=== PATIENT | female | born 1950 | race Caucasian/White ===

== ENCOUNTER 2018-07-10 15:17 | Inpatient (IN) | payer MEDICARE ==
[~2018-07-10] VITALS: Ht 149.9 cm; Wt 88.5 kg
[2018-07-10] MEDS ORDERED: METHYLPREDNISOLONE SOD SUCC 125 MG/2ML VIAL IV ONE (15:45)
[2018-07-10] MEDS ORDERED: MAGNESIUM SULFATE 2GM/50ML 50 ML IV ONE (15:45)
[2018-07-10] MEDS ORDERED: ALBUTEROL/IPRATROPIUM 3 ML NEB NEB ONE ×2 (16:00→18:45)
[2018-07-10 16:15] LABS: BASOPHILS # (AUTO) 0.1 (0.0-0.1); BASOPHILS % 0.6 % (0.0-1.0); EOSINOPHILS # (AUTO) 0.5 (0.0-0.4); EOSINOPHILS % 5.3 % (0.0-6.0); HEMATOCRIT 37.4 % (34.2-44.1); LYMPHOCYTES # (AUTO) 2.3 (1.0-3.2); LYMPHOCYTES % 24.1 % (18.0-39.1); MEAN CORPUSCULAR HEMOGLOBIN 32.8 pg (28-32); MEAN CORPUSCULAR HGB CONC 32.1 g/dL (31-35); MEAN CORPUSCULAR VOLUME 102.2 fL (81-99); MONOCYTES # (AUTO) 0.6 (0.2-0.8); MONOCYTES % 5.9 % (4.4-11.3); NEUTROPHILS # (AUTO) 6.1 (2.1-6.9); NEUTROPHILS % 63.8 % (38.7-80.0); PLATELET COUNT 292 x10e3/uL (140-360); RED BLOOD COUNT 3.66 x10e6/uL (3.6-5.1); RED CELL DISTRIBUTION WIDTH 12.2 % (11.7-14.4)
[2018-07-10 16:34] LABS: ALBUMIN 3.5 g/dL (3.5-5.0); ANION GAP 13.7 mmol/L (8-16); CREATININE, SERUM 1.23 mg/dL (0.57-1.11); POTASSIUM 3.7 mmol/L (3.5-5.1)
[2018-07-10 17:21] LABS: CLARITY,URINE HAZY (CLEAR); COLOR,URINE YELLOW (YELLOW); LEUKOCYTE ESTERASE ,URINE 2+ (NEGATIVE); NITRITE,URINE NEGATIVE (NEGATIVE); PROTEIN,URINE DIPSTICK NEGATIVE (NEGATIVE)
[2018-07-10 17:22] LABS: BILIRUBIN,URINE NEGATIVE (NEGATIVE); KETONES,URINE NEGATIVE (NEGATIVE); URINE UROBILINOGEN 0.2 mg/dL (0.2 - 1)
[2018-07-10 17:42] LABS: BACTERIA,URINE MANY /HPF; WBC,URINE (MAN) >50 /HPF (0-5)
--- NOTE | 2018-07-10 17:46 | Diagnostic Imaging Report ---
EXAMINATION: CHEST SINGLE (NOT PORTABLE) INDICATION: \S\COUGH \S\[id number] \S\[id number] COMPARISON: None FINDINGS: AP view TUBES and LINES: None. LUNGS: Low lung volumes. Bibasilar atelectasis. Increased interstitial lung markings likely due to low lung volumes. PLEURA: No pleural effusion or pneumothorax. HEART AND MEDIASTINUM: The cardiomediastinal silhouette is unremarkable.. BONES AND SOFT TISSUES: No acute osseous lesion. Soft tissues are unremarkable. UPPER ABDOMEN: No free air under the diaphragm. IMPRESSION: Low lung volumes with associated bibasilar atelectasis. Interstitial lung markings likely related to low lung volumes. Consider repeat good inspiratory chest x-ray to exclude interstitial edema. Signed by: Dr. Aylin Arias M.D. on 07/10/2018 5:43 PM
[2018-07-10] MEDS ORDERED: MORPHINE SULFATE 2 MG/ML SYR IV STA (18:35)
[2018-07-10] MEDS ORDERED: ONDANSETRON HCL INJ 2 MG/ML VIAL IV ONE (18:35)
[2018-07-10 18:39] LABS: CREATINE KINASE MB 2.1 ng/mL (0-5.0)
[2018-07-10] MEDS ORDERED: SODIUM CHLORIDE 0.9% 1000ML 1,000 ML ONE (19:20)
[2018-07-10] MEDS: AZITHROMYCIN 500MG/NS 250 ML 250 ML IV SCH (19:36)
[2018-07-10 21:00] VITALS: BP 114/79
[2018-07-10] MEDS ORDERED: METOPROLOL TART50 MG PO (21:08)
[2018-07-10] MEDS ORDERED: LEVOCETIRIZINE D5 MG (21:08)
[2018-07-10] MEDS ORDERED: NORVASC5 MG PO (21:08)
[2018-07-10] MEDS ORDERED: LIPITOR20 MG (21:08)
[2018-07-10] MEDS ORDERED: PHENYTOIN100 MG/4 M (21:08)
[2018-07-10] MEDS ORDERED: NABUMETONE500 MG (21:08)
[2018-07-10] MEDS ORDERED: ALPRAZOLAM2 MG (21:08)
[2018-07-10] MEDS ORDERED: ALENDRONATE SOD70 MG (21:08)
[2018-07-10 22:00] VITALS: BP 114/79
--- NOTE | 2018-07-10 23:54 | Diagnostic Imaging Report ---
EXAM: CT Abdomen and Pelvis WITH contrast INDICATION: Abdominal pain COMPARISON: None. TECHNIQUE: Abdomen and pelvis were scanned utilizing a multidetector helical scanner from the lung base to the pubic symphysis after administration of IV contrast. Coronal and sagittal reformations were obtained. Routine protocol was performed. Scan was performed when during portal venous phase. IV CONTRAST: 100 mL of Isovue-370 ORAL CONTRAST: Water RADIATION DOSE: Total DLP: 537.84 mGy*cm Estimated effective dose: (DLP x 0.015 x size factor) mSv COMPLICATIONS: None FINDINGS: LINES and TUBES: None. LOWER THORAX: There is bibasilar atelectasis. HEPATOBILIARY: No focal hepatic lesions. No biliary ductal dilation. GALLBLADDER: No radio-opaque stones or sludge. No wall thickening. SPLEEN: No splenomegaly. PANCREAS: No focal masses or ductal dilatation. 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 Kidneys enhance symmetrically. No hydronephrosis. No cystic or solid mass lesions. No stones. GI TRACT: No abnormal distention, wall thickening, or evidence of bowel obstruction. There are diverticula within the colon without evidence of diverticulitis. Appendix is not clearly identified. There is however no fat stranding or adenopathy in the right lower quadrant to suggest appendicitis. PELVIC ORGANS/BLADDER: Circumferential thickening of the urinary bladder with evidence of mucosal enhancement suggests chronic cystitis LYMPH NODES: No lymphadenopathy. VESSELS: There is moderate atherosclerotic disease in the aorta and major arterial branches. PERITONEUM / RETROPERITONEUM: No free air or fluid. BONES: Multiple right-sided rib fractures. Total left hip arthroplasty. Moderate degenerative changes of the thoracolumbar spine with evidence of severe chronic compression deformity of T11, T7 and into a lesser extent T10 SOFT TISSUES: Unremarkable. IMPRESSION: 1. Findings in the pelvis are compatible with ascites in the appropriate clinical setting. Correlation with UA is recommended. 2. Diverticulosis of the sigmoid colon without evidence of diverticulitis. Signed by: Dr. Abdiaziz Miller M.D. on 07/10/2018 11:50 PM
[2018-07-11] VITALS (8 sets, daily range): BP systolic 106–125; BP diastolic 56–69
[2018-07-11 05:54] LABS: BASOPHILS % 0.1 % (0.0-1.0); HEMATOCRIT 35.2 % (34.2-44.1); LYMPHOCYTES % 13.4 % (18.0-39.1); MEAN CORPUSCULAR HEMOGLOBIN 32.1 pg (28-32); MEAN CORPUSCULAR HGB CONC 31.3 g/dL (31-35); MEAN CORPUSCULAR VOLUME 102.6 fL (81-99); MONOCYTES # (AUTO) 0.1 (0.2-0.8); MONOCYTES % 0.8 % (4.4-11.3); NEUTROPHILS # (AUTO) 6.5 (2.1-6.9); NEUTROPHILS % 84.9 % (38.7-80.0); PLATELET COUNT 284 x10e3/uL (140-360); RED BLOOD COUNT 3.43 x10e6/uL (3.6-5.1)
[2018-07-11 06:29] LABS: ANION GAP 13.4 mmol/L (8-16); CALCIUM 8.6 mg/dL (8.4-10.2); CREATININE, SERUM 1.09 mg/dL (0.57-1.11); POTASSIUM 4.4 mmol/L (3.5-5.1)
[2018-07-11 06:36] LABS: CREATINE KINASE MB 3.5 ng/mL (0-5.0)
[2018-07-11] MEDS: CEFTRIAXONE SOD 1 GM VIAL IV SCH (13:25)
[2018-07-11] MEDS: GUAIFENESIN 600MG/DEXTROMETHORPHAN 30MG TABSR PO SCH ×2 (13:25→20:16)
[2018-07-11] MEDS: METHYLPREDNISOLONE SOD SUCC 40 MG/ML VIAL IV SCH ×2 (13:25→20:16)
[2018-07-11] MEDS: HEPARIN SOD (PORCINE) 5,000 UNIT/ML VIAL SC SCH ×2 (13:25→20:18)
[2018-07-11] MEDS: LORATADINE 10 MG TAB PO SCH (13:35)
[2018-07-11 15:01] LABS: CREATINE KINASE 138 IU/L (29-168)
[2018-07-11] MEDS: TRAMADOL HCL 50 MG TAB PO PRN (15:31)
[2018-07-11] MEDS: BENZONATATE 100 MG CAP PO SCH ×2 (15:31→20:17)
[2018-07-11] MEDS: FAMOTIDINE 20 MG TAB PO SCH (17:15)
[2018-07-11] MEDS: METOPROLOL TARTRATE 50 MG TAB PO SCH (17:15)
--- NOTE | 2018-07-11 17:17 | History and Physical ---
PRIMARY CARE PHYSICIAN: Dr. Vasquez. CHIEF COMPLAINT: Shortness of breath and cough. HISTORY OF PRESENT ILLNESS: This is a 68-year-old woman with a history of stroke and COPD, who has continued to smoke 1 pack of cigarettes per day, now complaining of shortness of breath and cough prompting a visit to the hospital. She is admitted for further evaluation and management. Denies any chest pain. PAST MEDICAL HISTORY: COPD, stroke, anxiety disorder, osteoporosis, hypertension, hyperlipidemia, obesity. PAST SURGICAL HISTORY: Unknown. ALLERGIES: PER THE ELECTRONIC MEDICAL RECORDS. FAMILY HISTORY/SOCIAL HISTORY: Patient lives with her daughter and her 6 grandchildren. Patient is . Continues to smoke 1 pack of cigarettes per day. MEDICATIONS: Per the electronic medical records. Medications reviewed. REVIEW OF SYSTEMS: Denies any dizziness, chest pain. Denies any fever, chills, sweats, nausea, vomiting, diarrhea, headache. VITAL SIGNS: Have been reviewed. PHYSICAL EXAMINATION GENERAL APPEARANCE: A tired-appearing woman resting in bed. HEENT: Anicteric. CARDIOVASCULAR: Normal S1/S2. LUNGS: She has reduced breath sounds throughout. ABDOMEN: Soft, nontender. Does appear to have some edema in the abdominal wall. EXTREMITIES: She has no edema. NEUROLOGICALLY: Awake, alert, appropriate. She does whisper due to a stroke, has difficulty with speech. PSYCHIATRIC: Flat affect. LABS: Reviewed. ASSESSMENT: This is a 68-year-old woman. 1. Acute exacerbation of chronic obstructive pulmonary disease. 1. Acute kidney injury. 2. Cigarette abuse. 3. Obesity. 4. Urinary tract infection. 5. Ascites. 6. Diverticulosis. 7. Hypertension. 8. Hyperlipidemia. 9. History of stroke. 10. Gait disturbance. PLAN 1. Will use nebs, steroids, antibiotics, antihistamine, antitussive medication. 2. Will treat the urinary tract infection with ceftriaxone and obtain cultures. 3. Will monitor renal function. 4. Will obtain hemoglobin A1c and lipid panel. 5. Will start nicotine patch and international student counselor on cigarette cessation. 6. Physical therapy consultation. 7. Will use heparin and Pepcid for the prophylaxis. 8. Disposition. Monitor closely and follow up labs in the morning. Job#: [id number] EV
[2018-07-11] MEDS: AZITHROMYCIN 500MG/NS 250 ML 250 ML IV SCH (17:40)
[2018-07-11] MEDS: ATORVASTATIN 40 MG TAB PO SCH (20:16)
[2018-07-11] MEDS: MONTELUKAST SODIUM 10 MG TAB PO SCH (20:17)
[2018-07-11] MEDS: ACETAMINOPHEN 325 MG TAB PO PRN (23:50)
[2018-07-12] VITALS (7 sets, daily range): BP systolic 96–121; BP diastolic 52–63
[2018-07-12 05:15] LABS: BASOPHILS % 0.1 % (0.0-1.0); HEMATOCRIT 31.4 % (34.2-44.1); LYMPHOCYTES # (AUTO) 1.1 (1.0-3.2); LYMPHOCYTES % 11.1 % (18.0-39.1); MEAN CORPUSCULAR HEMOGLOBIN 32.9 pg (28-32); MEAN CORPUSCULAR HGB CONC 31.8 g/dL (31-35); MEAN CORPUSCULAR VOLUME 103.3 fL (81-99); MONOCYTES # (AUTO) 0.4 (0.2-0.8); MONOCYTES % 3.4 % (4.4-11.3); NEUTROPHILS # (AUTO) 8.7 (2.1-6.9); NEUTROPHILS % 84.8 % (38.7-80.0); PLATELET COUNT 268 x10e3/uL (140-360); RED BLOOD COUNT 3.04 x10e6/uL (3.6-5.1); RED CELL DISTRIBUTION WIDTH 12.2 % (11.7-14.4)
[2018-07-12 05:36] LABS: ANION GAP 13.6 mmol/L (8-16); CALCIUM 8.3 mg/dL (8.4-10.2); CREATININE, SERUM 1.06 mg/dL (0.57-1.11); POTASSIUM 4.6 mmol/L (3.5-5.1)
[2018-07-12] MEDS: FAMOTIDINE 20 MG TAB PO SCH ×2 (08:05→16:49)
[2018-07-12] MEDS: TRAMADOL HCL 50 MG TAB PO PRN ×2 (08:32→16:40)
[2018-07-12] MEDS: LORATADINE 10 MG TAB PO SCH (08:55)
[2018-07-12] MEDS: METHYLPREDNISOLONE SOD SUCC 40 MG/ML VIAL IV SCH ×2 (08:55→20:31)
[2018-07-12] MEDS: BENZONATATE 100 MG CAP PO SCH ×3 (08:55→20:31)
[2018-07-12] MEDS: GUAIFENESIN 600MG/DEXTROMETHORPHAN 30MG TABSR PO SCH ×2 (08:55→20:31)
[2018-07-12] MEDS: NICOTINE 21 MG/EA PATCH TOP SCH (08:56)
[2018-07-12] MEDS: AMLODIPINE BESYLATE 10 MG TAB PO SCH (08:56)
[2018-07-12] MEDS: HEPARIN SOD (PORCINE) 5,000 UNIT/ML VIAL SC SCH ×2 (08:56→20:32)
[2018-07-12] MEDS: METOPROLOL TARTRATE 50 MG TAB PO SCH (08:58)
[2018-07-12] MEDS ORDERED: ATORVASTATIN 20 MG TAB PO SCH (09:00)
[2018-07-12] MEDS ORDERED: AMLODIPINE BESYLATE 5 MG TAB PO SCH (09:00)
[2018-07-12] MEDS: CEFTRIAXONE SOD 1 GM VIAL IV SCH (13:02)
[2018-07-12] MEDS: HYDRALAZINE HCL 25 MG TAB PO SCH ×2 (14:00→20:31)
[2018-07-12] MEDS ORDERED: SODIUM CHLORIDE 0.9% 250ML 250 ML ONE (16:57)
[2018-07-12] MEDS: AZITHROMYCIN 500MG/NS 250 ML 250 ML IV SCH (17:09)
[2018-07-12] MEDS: ATORVASTATIN 40 MG TAB PO SCH (20:31)
[2018-07-12] MEDS: MONTELUKAST SODIUM 10 MG TAB PO SCH (20:31)
[2018-07-12] MEDS: ACETAMINOPHEN 325 MG TAB PO PRN (20:38)
[2018-07-13] VITALS (8 sets, daily range): BP systolic 96–138; BP diastolic 50–67
[2018-07-13] MEDS: TRAMADOL HCL 50 MG TAB PO PRN ×4 (01:16→21:10)
[2018-07-13 05:13] LABS: HEMATOCRIT 32.2 % (34.2-44.1); HEMOGLOBIN 9.9 g/dL (12.0-16.0); LYMPHOCYTES # (AUTO) 1.2 (1.0-3.2); LYMPHOCYTES % 11.3 % (18.0-39.1); MEAN CORPUSCULAR HEMOGLOBIN 32.9 pg (28-32); MEAN CORPUSCULAR HGB CONC 30.7 g/dL (31-35); MONOCYTES # (AUTO) 0.4 (0.2-0.8); MONOCYTES % 3.7 % (4.4-11.3); NEUTROPHILS % 84.3 % (38.7-80.0); PLATELET COUNT 267 x10e3/uL (140-360); RED BLOOD COUNT 3.01 x10e6/uL (3.6-5.1); RED CELL DISTRIBUTION WIDTH 12.2 % (11.7-14.4)
[2018-07-13 05:24] LABS: ANION GAP 14.7 mmol/L (8-16); CALCIUM 8.3 mg/dL (8.4-10.2); POTASSIUM 4.7 mmol/L (3.5-5.1)
[2018-07-13 05:43] LABS: CREATININE, SERUM 1.1 mg/dL (0.57-1.11)
[2018-07-13] MEDS: HYDRALAZINE HCL 25 MG TAB PO SCH ×3 (06:18→22:18)
[2018-07-13] MEDS: ACETAMINOPHEN 325 MG TAB PO PRN ×2 (06:18→16:57)
[2018-07-13] MEDS: FAMOTIDINE 20 MG TAB PO SCH ×2 (09:59→16:55)
[2018-07-13] MEDS: NICOTINE 21 MG/EA PATCH TOP SCH (10:00)
[2018-07-13] MEDS: HEPARIN SOD (PORCINE) 5,000 UNIT/ML VIAL SC SCH ×2 (10:00→20:55)
[2018-07-13] MEDS: GUAIFENESIN 600MG/DEXTROMETHORPHAN 30MG TABSR PO SCH ×2 (10:00→20:55)
[2018-07-13] MEDS: BENZONATATE 100 MG CAP PO SCH ×3 (10:00→20:55)
[2018-07-13] MEDS: LORATADINE 10 MG TAB PO SCH (10:00)
[2018-07-13] MEDS: METHYLPREDNISOLONE SOD SUCC 40 MG/ML VIAL IV SCH ×2 (10:00→20:55)
[2018-07-13] MEDS: AMLODIPINE BESYLATE 10 MG TAB PO SCH (10:07)
[2018-07-13] MEDS ORDERED: SODIUM CHLORIDE 0.9% 250ML 250 ML IV ONE (12:30)
--- NOTE | 2018-07-13 13:32 | Progress Note ---
DATE: July 13, 2018 TIME OF SERVICE: 11:30 a.m. OVERNIGHT: No acute events. REVIEW OF SYSTEMS: Patient denies chest pain or shortness of breath at rest. Denies any fever, chills, sweats, nausea, vomiting, or diarrhea. Complains of headache and some abdominal tenderness. PHYSICAL EXAMINATION VITAL SIGNS: Temperature 97.1, pulse 50, respiratory rate 16, BP 109/59, and SpO2 100% with nasal cannula at 3 L/minute. GENERAL APPEARANCE: This is a tired-appearing woman, resting in bed. HEENT: Normocephalic. No sinus tenderness. Oral mucosa moist, pale and intact. NECK: Trachea midline. CV: S1 and S2 without clicks, murmurs, or rubs appreciated. LUNGS: Bilateral breath sounds reduced in all walker without crackles or wheezes. ABDOMEN: Soft, nontender with slight edema to the abdominal wall. Slight tenderness upon deep palpation to left lower and lower upper quadrants. EXTREMITIES: No edema. NEUROLOGIC: A and O x3. Left-sided weakness compared to right. Slight facial droop noted at forehead. PSYCHIATRIC: Flat affect. LABS: Na 140, K 4.7, Cl 110, CO2 of 20, gap 14.7, BUN 28, CR 1.1, and GFR 49. WBC is 10.69, H and H 9.9 and 32.2 respectively, and platelets 267. MEDICATIONS 1. Norvasc 10 mg p.o. daily. 2. NicoDerm patch 21 mg daily. 3. Mucinex q.12 hours. 4. Tessalon t.i.d. 5. Claritin 10 mg p.o. daily. 6. Solu-Medrol 20 mg q.12 hours IV. 7. Subcu heparin 5000 units q.12. 8. Pepcid p.o. b.i.d. 9. Ultram p.r.n. 10. Hydralazine q.8 hours p.o. 11. Tylenol p.r.n. 12. Lipitor 40 mg p.o. at bedtime. 13. Singulair 10 mg p.o. at bedtime. 14. IV antibiotics include azithromycin and Rocephin, broad-spectrum coverage. ASSESSMENT AND PLAN: This is a 68-year-old woman with; 1. Acute exacerbation of chronic obstructive pulmonary disease. Continue nebs, steroids, antihistamines, and antitussive medications. 2. Acute kidney injury, resolved. Will treat with gentle fluid this day for increasing BUN. 3. Cigarette abuse. Nicotine patch. Prior cigarette cessation counseling noted per record. 4. Urinary tract infection. Two organisms noted with combined sensitivity to Zosyn. We will renally dose based on calculated creatinine clearance of 33.52. 5. Ascites. Weight gain per I and O record. Will continue daily weights and monitor fluid status. 6. Diverticulosis. Per abdominal CT, no evidence of diverticulitis. 7. Hypertension. Controlled on current regimen. Continue to monitor. 8. Hyperlipidemia. We will obtain A1c and lipid panel in the a.m. 9. History of stroke. PT eval pending. 1. Gait disturbance. 2. Prophylaxis. Pepcid and SCDs. 3. Disposition: IV ABX renal dose as above. PT eval pending. Discussed plan of care with patient, RN, and physical therapist at bedside this day. Treatment plan as above. Dictated by: Feliciano Langford NP Job#: [id number] AWA
[2018-07-13] MEDS: PIPERACILLIN/TAZO 2.25 GM 50 ML IV SCH (16:56)
[2018-07-13] MEDS: MONTELUKAST SODIUM 10 MG TAB PO SCH (20:55)
[2018-07-13] MEDS: ATORVASTATIN 40 MG TAB PO SCH (20:55)
--- NOTE | 2018-07-13 22:53 | Progress Note ---
DATE: July 12, 2018 TIME OF SERVICE: 7:15 a.m. OVERNIGHT: No events. REVIEW OF SYSTEMS: Denies any dizziness or chest pain. Denies any fever, chills, sweats, nausea, vomiting, diarrhea, or headache. PHYSICAL EXAMINATION VITAL SIGNS: Reviewed. GENERAL APPEARANCE: A tired-appearing woman, resting in bed. HEENT: Anicteric. CARDIOVASCULAR: Normal S1 and S2. LUNGS: Reduced breath sounds throughout. ABDOMEN: Soft, nontender. EXTREMITIES: No edema . SKIN: Dry. PSYCHIATRIC: Flat affect. NEUROLOGICAL: Some difficulty with . LABS: Reviewed. MEDICATIONS: Reviewed. ASSESSMENT: This is a 68-year-old woman with 1. Acute exacerbation of chronic obstructive pulmonary disease. 2. Acute kidney injury. 3. Cigarette abuse. 4. Obesity. 5. Urinary tract infection. 6. Ascites. 7. Diverticulosis. 8. Hypertension. 9. Hyperlipidemia. 10. History of stroke. 11. Gait disturbance. PLAN 1. Continue nebs, steroids, antibiotics, antihistamines, and antitussive medications. 2. Continue supportive care. 3. We will obtain hemoglobin A1c and lipid panel. 4. Continue nicotine patch. 5. Continue heparin and Pepcid prophylaxis. Job#: [id number]
[2018-07-14] VITALS (8 sets, daily range): BP systolic 100–145; BP diastolic 49–64
[2018-07-14] MEDS: PIPERACILLIN/TAZO 2.25 GM 50 ML IV SCH ×4 (00:11→17:10)
[2018-07-14] MEDS: ACETAMINOPHEN 325 MG TAB PO PRN ×2 (01:03→15:00)
[2018-07-14] MEDS: TRAMADOL HCL 50 MG TAB PO PRN ×3 (04:05→22:54)
[2018-07-14 05:30] LABS: ALBUMIN 3.4 g/dL (3.5-5.0); ALBUMIN/GLOBULIN RATIO 1.1 (0.8-2.0); ANION GAP 15.3 mmol/L (8-16); CALCIUM 8.8 mg/dL (8.4-10.2); CHOL/HDL RATIO 3.1 (3.0-3.6); CREATININE, SERUM 1.24 mg/dL (0.57-1.11); POTASSIUM 4.3 mmol/L (3.5-5.1)
[2018-07-14] MEDS: HYDRALAZINE HCL 25 MG TAB PO SCH ×3 (06:48→22:15)
[2018-07-14] MEDS: FAMOTIDINE 20 MG TAB PO SCH ×2 (07:25→17:10)
[2018-07-14] MEDS: METHYLPREDNISOLONE SOD SUCC 40 MG/ML VIAL IV SCH ×2 (08:53→22:15)
[2018-07-14] MEDS: HEPARIN SOD (PORCINE) 5,000 UNIT/ML VIAL SC SCH ×2 (08:53→22:15)
[2018-07-14] MEDS: LORATADINE 10 MG TAB PO SCH (08:53)
[2018-07-14] MEDS: AMLODIPINE BESYLATE 10 MG TAB PO SCH (08:53)
[2018-07-14] MEDS: GUAIFENESIN 600MG/DEXTROMETHORPHAN 30MG TABSR PO SCH ×2 (08:53→22:15)
[2018-07-14] MEDS: NICOTINE 21 MG/EA PATCH TOP SCH (08:53)
[2018-07-14] MEDS: BENZONATATE 100 MG CAP PO SCH ×3 (08:53→22:15)
[2018-07-14] MEDS ORDERED: ACETAMIN/BUTALBITAL/CAFFEINE TAB PO PRN (17:00)
[2018-07-14] MEDS: MONTELUKAST SODIUM 10 MG TAB PO SCH (22:15)
[2018-07-14] MEDS: ATORVASTATIN 40 MG TAB PO SCH (22:15)
--- NOTE | 2018-07-14 23:32 | Progress Note ---
DATE: July 14, 2018 TIME OF SERVICE: 1:15 p.m. OVERNIGHT: No events. REVIEW OF SYSTEMS: Denies any dizziness, chest pain, fever, chills, sweats, nausea, vomiting, or diarrhea. PHYSICAL EXAMINATION VITAL SIGNS: Reviewed. GENERAL APPEARANCE: A tired-appearing woman, resting in bed. HEENT: Anicteric with some . CARDIOVASCULAR: Normal S1 and S2. LUNGS: Reduced breath sounds throughout. ABDOMEN: Soft, nontender. EXTREMITIES: No edema . SKIN: Dry. PSYCHIATRIC: Flat affect. NEUROLOGICAL: Alert. Speech difficulty. LABS: Reviewed. MEDICATIONS: Reviewed. ASSESSMENT: This is a 68-year-old woman with 1. Acute exacerbation of chronic obstructive pulmonary disease. 2. Acute kidney injury. 3. Cigarette abuse. 4. Obesity. 5. Urinary tract infection with Klebsiella pneumoniae and Serratia fonticola, both sensitive to Zosyn. 6. Ascites. 7. Diverticulosis. 8. Hypertension. 9. Hyperlipidemia. 10. History of stroke. 11. Gait disturbance. PLAN 1. Continue nebs, steroids, antibiotics, antihistamines, and antitussive medications. 2. Continue weaning oxygen. 3. Continue nicotine patch. 4. Hemoglobin A1c 5.2, LDL 90 and triglycerides 89. 5. Discharge planning. 6. Continue Zosyn and follow up chest x-ray. Job#: [id number]
[2018-07-15] VITALS: BP 132/67
[2018-07-15] MEDS: PIPERACILLIN/TAZO 2.25 GM 50 ML IV SCH ×3 (00:43→12:30)
[2018-07-15 04:00] VITALS: BP 104/53
[2018-07-15] MEDS: HYDRALAZINE HCL 25 MG TAB PO SCH ×2 (06:00→14:46)
[2018-07-15] MEDS ORDERED: TESSALON PERLE100 MG PO (06:54)
[2018-07-15] MEDS ORDERED: SINGULAIR10 MG PO (06:54)
[2018-07-15] MEDS ORDERED: FAMOTIDINE20 MG PO (06:54)
[2018-07-15] MEDS ORDERED: HYDRALAZINE HCL25 MG PO (06:54)
[2018-07-15] MEDS ORDERED: NICODERM CQ1 EAC2 TOP (06:54)
[2018-07-15] MEDS ORDERED: LORATADINE10 MG PO (06:54)
[2018-07-15] MEDS ORDERED: MUCINEX DM ER1 EACH PO (06:54)
[2018-07-15] MEDS ORDERED: PREDNISONE20 MG PO (06:54)
[2018-07-15] MEDS ORDERED: ACETAMIN/BUTALBITAL/CAFFEINE TAB PO STA (07:34)
[2018-07-15 07:54] VITALS: BP 116/53
[2018-07-15] MEDS ORDERED: ACETAMIN/BUTALBITAL/CAFFEINE TAB PO PRN (08:00)
[2018-07-15 08:15] VITALS: BP 116/53
[2018-07-15] MEDS: LORATADINE 10 MG TAB PO SCH (08:15)
[2018-07-15] MEDS: METHYLPREDNISOLONE SOD SUCC 40 MG/ML VIAL IV SCH (08:15)
[2018-07-15] MEDS: BENZONATATE 100 MG CAP PO SCH ×2 (08:15→14:46)
[2018-07-15] MEDS: GUAIFENESIN 600MG/DEXTROMETHORPHAN 30MG TABSR PO SCH (08:15)
[2018-07-15] MEDS: AMLODIPINE BESYLATE 10 MG TAB PO SCH (08:15)
[2018-07-15] MEDS: NICOTINE 21 MG/EA PATCH TOP SCH (08:15)
[2018-07-15] MEDS: FAMOTIDINE 20 MG TAB PO SCH (08:15)
[2018-07-15] MEDS: HEPARIN SOD (PORCINE) 5,000 UNIT/ML VIAL SC SCH (08:15)
--- NOTE | 2018-07-15 11:50 | Diagnostic Imaging Report ---
EXAM: Renal Ultrasound INDICATION: ANYA versus CKD COMPARISON: CT Abdomen/Pelvis 07/10/18. TECHNIQUE: Transverse and longitudinal images of the kidneys and bladder were obtained. FINDINGS: Right Kidney: Length: Measures up to 7.6 cm. Renal cortex measures 1.1 cm. Appearance: Normal echogenicity. Collecting system: No hydronephrosis Stones: None. Cyst/Mass: None. Left Kidney: Length: Measures 10.5 cm. Renal cortex measures 1.7 cm. Appearance: Normal echogenicity. Collecting system: No hydronephrosis. Stones: None. Cyst/Mass: None. Bladder: Bladder is decompressed with the ureteral jets not visualized. IMPRESSION: No evidence of hydronephrosis or stone. Mildly atrophic right kidney. Signed by: Dr. Laura Funes MD on 07/15/2018 11:46 AM
--- NOTE | 2018-07-15 12:18 | Diagnostic Imaging Report ---
PROCEDURE: A single AP view of the chest. COMPARISON: Chest radiograph 07/10/18. INDICATIONS: SEVERE COPD WITH POSSIBLE CHF FINDINGS: Lines/tubes: None. Lungs: Low lung volumes. There are mild bilateral perihilar and interstitial opacities. Patchy bibasilar opacities, likely atelectasis. Pleura: There is no pleural effusion or pneumothorax. Heart and mediastinum: The cardiomediastinal silhouette is unchanged. Bones: No acute bony abnormality. IMPRESSION: Interval development of mild pulmonary interstitial edema. Low lung volumes with patchy bibasilar opacities, likely atelectasis. Dictated by: KSENIA KEITH M.D. on 07/14/2018 at 11:00 Electronically approved by: KSENIA KEITH M.D. on 07/14/2018 at 11:00
[2018-07-15 12:22] VITALS: BP 128/59
[2018-07-15] MEDS: TRAMADOL HCL 50 MG TAB PO PRN (12:30)
[2018-07-15] MEDS ORDERED: BUTALB-ACETAMI1 EACH PO (14:05)
[2018-07-15] MEDS ORDERED: LEVAQUIN500 MG PO (14:06)
[2018-07-15 15:43] VITALS: BP 128/66
--- NOTE | 2018-07-15 23:34 | Discharge Summary ---
PRINCIPAL DIAGNOSES 1. Acute exacerbation of chronic obstructive pulmonary disease. 2. Acute kidney injury. 3. Cigarette abuse. 4. Obesity. 5. Urinary tract infection and Klebsiella pneumoniae and Serratia fonticola. 6. Ascites. 7. Diverticulosis. 8. Hypertension. 9. Hyperlipidemia. 10. History of stroke. 11. Gait disturbance. SECONDARY DIAGNOSIS: Cigarette use. HISTORY OF PRESENT ILLNESS: A 68-year-old woman with shortness of breath. Please refer to H and P for further details. HOSPITAL COURSE: Patient found to have acute exacerbation of COPD and acute kidney injury. She likely has some degree of chronic kidney disease. Renal ultrasound shows some chronic changes. She has cigarette abuse and obesity, urinary tract infection with Klebsiella pneumoniae and Serratia fonticola, sensitive with Zosyn, which she has been receiving. Will be discharged home with Levaquin for additional day. She had ascites and diverticulosis. Gait disturbance, received physical therapy. Patient did well. Her hemoglobin A1c 5.2, LDL 9. She does not have diabetes. Currently, appropriate for discharge. DISCHARGE MEDICATION: Per electronic medical record. FOLLOWUP: Primary care doctor in 1 week. CONDITION ON DISCHARGE: Stable, improving. DISCHARGE LOCATION: Home with physical therapy. Job#: [id number] CQ
== END 2018-07-15 16:53 | disposition home or self-care (01) | DRG 191 ==
LOC: ER 15:17 → ERHOLD 18:59 → IMCU 20:42 → OBSVTOIN 07-12 18:55 → MED/SURG 07-12 21:08
PROVIDERS: ADMIT Internal Medicine; ATTEND Internal Medicine
DX: J44.1 Chronic obstructive pulmonary disease with (acute) exacerbation (principal); N17.9 Acute kidney failure, unspecified; N39.0 Urinary tract infection, site not specified; R18.8 Other ascites; F17.210 Nicotine dependence, cigarettes, uncomplicated; E66.9 Obesity, unspecified; Z68.39 Body mass index [BMI] 39.0-39.9, adult; B96.1 Klebsiella pneumoniae [K. pneumoniae] as the cause of diseases classified elsewhere; B96.89 Other specified bacterial agents as the cause of diseases classified elsewhere; K57.90 Diverticulosis of intestine, part unspecified, without perforation or abscess without bleeding; I12.9 Hypertensive chronic kidney disease with stage 1 through stage 4 chronic kidney disease, or unspecified chronic kidney disease; N18.9 Chronic kidney disease, unspecified; E78.5 Hyperlipidemia, unspecified; Z86.73 Personal history of transient ischemic attack (TIA), and cerebral infarction without residual deficits; Z74.09 Other reduced mobility; I69.320 Aphasia following cerebral infarction; I69.328 Other speech and language deficits following cerebral infarction
CPT/HCPCS: 36415; 71045; 74177; 76770; 80048; 80053; 80061; 81001; 82550; 82553; 83036; 83880; 84484; 85025; 87086; 87186; 93306; 94640; 97139; 99284; G0378; J0456; J0696; J1644; J2270; J2405; J2543; J2920; J2930; J7030; J7050

== ENCOUNTER 2021-11-12 17:00 | Inpatient (IN) | payer MEDICARE ==
[~2021-11-12] VITALS: Ht 149.9 cm; Wt 70.3 kg
[~2021-11-12 17:00] MED LIST: ALENDRONATE SOD70 MG; ALPRAZOLAM2 MG PO; BUTALB-ACETAMI1 EACH PO; FAMOTIDINE20 MG PO; HYDRALAZINE HCL25 MG PO; LEVAQUIN500 MG PO; LEVOCETIRIZINE D5 MG PO; LIPITOR20 MG; LORATADINE10 MG PO; METOPROLOL TART50 MG PO; MUCINEX DM ER1 EACH PO; NABUMETONE500 MG PO; NICODERM CQ1 EAC2 TOP; NORVASC5 MG PO; PHENYTOIN100 MG/4 M; PREDNISONE20 MG PO; SINGULAIR10 MG PO; TESSALON PERLE100 MG PO
[2021-11-12] MEDS ORDERED: LACTATED RINGER'S 1,000 ML INJ ONE (17:15)
[2021-11-12 17:24] LABS: BASOPHILS % 0.4 % (0.0-1.0); EOSINOPHILS # (AUTO) 0.1 (0.0-0.4); EOSINOPHILS % 1.3 % (0.0-6.0); HEMATOCRIT 40.3 % (34.2-44.1); LYMPHOCYTES # (AUTO) 3.4 (1.0-3.2); MEAN CORPUSCULAR HEMOGLOBIN 30.9 pg (28-32); MEAN CORPUSCULAR HGB CONC 29.8 g/dL (31-35); MEAN CORPUSCULAR VOLUME 103.9 fL (81-99); MONOCYTES # (AUTO) 0.6 (0.2-0.8); MONOCYTES % 8.5 % (4.4-11.3); NEUTROPHILS % 41.5 % (38.7-80.0); PLATELET COUNT 185 x10e3/uL (140-360); RED BLOOD COUNT 3.88 x10e6/uL (3.6-5.1); RED CELL DISTRIBUTION WIDTH 14.2 % (11.7-14.4)
[2021-11-12] MEDS ORDERED: SODIUM CHLORIDE 0.9% 1000ML 1,000 ML ONE (17:31)
[2021-11-12 17:40] LABS: INR 1.12; PROTHROMBIN TIME 15.2 seconds (11.9-14.5)
[2021-11-12 17:41] LABS: PARTIAL THROMBOPLASTIN TIME 31.5 seconds (23.8-35.5)
[2021-11-12 17:41] LABS: CLARITY,URINE HAZY (CLEAR); COLOR,URINE ORANGE (YELLOW); KETONES,URINE 1+ (NEGATIVE); LEUKOCYTE ESTERASE ,URINE LARGE (NEGATIVE); NITRITE,URINE POSITIVE (NEGATIVE); PROTEIN,URINE DIPSTICK >=300 (NEGATIVE)
[2021-11-12 17:45] LABS: BACTERIA,URINE MANY /HPF; EPITHELIAL CELLS,URINE MANY /LPF; WBC,URINE (MAN) 21-50 /HPF (0-5)
[2021-11-12] MEDS ORDERED: SODIUM CHLORIDE 0.9% 1000ML 1,000 ML IV ONE (17:45)
[2021-11-12 17:47] LABS: AMORPHOUS SEDIMENT,URINE FEW (FEW); MUCUS,URINE MANY (RARE)
[2021-11-12 17:50] LABS: ALBUMIN 3.5 g/dL (3.5-5.0); ALBUMIN/GLOBULIN RATIO 0.9 (0.8-2.0); ANION GAP 15.7 mmol/L (8-16); CALCIUM 8.5 mg/dL (8.4-10.2); CREATININE, SERUM 2.23 mg/dL (0.57-1.11); POTASSIUM 3.7 mmol/L (3.5-5.1)
[2021-11-12 17:56] LABS: CREATINE KINASE MB 8.3 ng/mL (0-5.0)
[2021-11-12] MEDS ORDERED: CEFTRIAXONE 1 GM VIAL IV ONE (18:45)
[2021-11-12] MEDS ORDERED: CEFTRIAXONE 1 GM VIAL ONE (18:51)
[2021-11-12] MEDS ORDERED: SODIUM CHLORIDE 0.9% 50ML 50 ML ONE (18:51)
[2021-11-12] MEDS ORDERED: CEFTRIAXONE 1 GM in SODIUM CHLORIDE 0.9% 50ML 50 ML IV ONE (19:15)
[2021-11-12] MEDS ORDERED: DEXAMETHASONE SOD PHOS 10 MG/1 ML VIAL IV ONE (19:15)
[2021-11-12] MEDS ORDERED: CRESTOR10 MG PO (19:34)
[2021-11-12] MEDS ORDERED: ULTRAM 50MG50 MG PO (19:34)
[2021-11-12] MEDS ORDERED: OMEPRAZOLE40 MG PO (19:34)
[2021-11-12] MEDS ORDERED: TRAMADOL/APAP PO (19:34)
[2021-11-12] MEDS ORDERED: BENICAR20 MG PO (19:34)
[2021-11-12] MEDS ORDERED: ASPIRIN81 MG PO (19:36)
[2021-11-12] MEDS ORDERED: CLOPIDOGREL75 MG PO (19:36)
[2021-11-12] MEDS ORDERED: OXYBUTYNIN CHLOR5 MG PO (19:36)
[2021-11-12] MEDS ORDERED: TYLENOL325 MG PO (19:36)
[2021-11-12] MEDS ORDERED: PYRIDIUM200 MG PO (19:36)
[2021-11-12 20:49] VITALS: BP 124/54
[2021-11-12] MEDS: NON-FORMULARY MEDICATION (Nabumetone 500 MG) PO SCH (23:15)
[2021-11-12 23:44] VITALS: BP 107/53
[2021-11-12] MEDS: ACETAMIN/BUTALBITAL/CAFFEINE TAB PO PRN (23:45)
[2021-11-13] VITALS (9 sets, daily range): BP systolic 100–114; BP diastolic 4–68
[2021-11-13] MEDS: ACETAMIN/BUTALBITAL/CAFFEINE TAB PO PRN ×2 (00:02→06:48)
[2021-11-13] MEDS: OXYBUTYNIN CHLORIDE 5 MG TAB PO SCH ×3 (00:02→16:51)
[2021-11-13] MEDS: SODIUM CHLORIDE 0.9% 1000ML 1,000 ML IV SCH ×4 (00:02→22:23)
[2021-11-13] MEDS: SIMVASTATIN 40 MG TAB PO SCH ×2 (00:02→09:06)
[2021-11-13] MEDS: AMLODIPINE BESYLATE 5 MG TAB PO SCH ×2 (00:02→09:00)
[2021-11-13] MEDS: ALPRAZOLAM 1 MG TAB PO SCH ×3 (00:02→22:24)
[2021-11-13 05:14] LABS: HEMATOCRIT 35.1 % (34.2-44.1); HEMOGLOBIN 10.1 g/dL (12.0-16.0); LYMPHOCYTES # (AUTO) 0.5 (1.0-3.2); LYMPHOCYTES % 19.8 % (18.0-39.1); MEAN CORPUSCULAR HEMOGLOBIN 30.6 pg (28-32); MEAN CORPUSCULAR HGB CONC 28.8 g/dL (31-35); MEAN CORPUSCULAR VOLUME 106.4 fL (81-99); MONOCYTES # (AUTO) 0.2 (0.2-0.8); MONOCYTES % 5.8 % (4.4-11.3); NEUTROPHILS # (AUTO) 1.9 (2.1-6.9); PLATELET COUNT 170 x10e3/uL (140-360); RED CELL DISTRIBUTION WIDTH 13.9 % (11.7-14.4)
[2021-11-13 05:38] LABS: ANION GAP 14.4 mmol/L (8-16); CALCIUM 7.5 mg/dL (8.4-10.2); CREATININE, SERUM 1.38 mg/dL (0.57-1.11); POTASSIUM 4.4 mmol/L (3.5-5.1)
[2021-11-13 08:33] LABS: BAND NEUTROPHILS % (MANUAL) 1 %; LYMPHOCYTES % (MANUAL) 17 % (19-48); MONOCYTES % (MANUAL) 4 % (3.4-9.0); NEUTROPHILS % (MANUAL) 78 % (40-74); PLATELET ESTIMATE ADEQUATE; PLATELET MORPHOLOGY COMMENT NORMAL; RBC MORPHOLOGY COMMENT NORMAL
[2021-11-13] MEDS: NON-FORMULARY MEDICATION (Nabumetone 500 MG) PO SCH ×2 (08:51→12:04)
[2021-11-13] MEDS: TRAMADOL/APAP 37.5MG-325MG TAB PO SCH ×2 (09:00→17:48)
[2021-11-13] MEDS ORDERED: TRAMADOL HCL 50 MG TAB PO SCH (09:00)
[2021-11-13] MEDS: ASCORBIC ACID 500 MG TAB PO SCH ×2 (09:06→16:51)
[2021-11-13] MEDS: CHOLECALCIFEROL 1,000 UNIT TAB PO SCH (09:06)
[2021-11-13] MEDS: PANTOPRAZOLE SOD 40 MG TABEC PO SCH (09:06)
[2021-11-13] MEDS: LORATADINE 10 MG TAB PO SCH (09:06)
[2021-11-13] MEDS: BENZONATATE 100 MG CAP PO SCH ×3 (09:06→22:23)
[2021-11-13] MEDS: ZINC SULFATE 220 MG CAP PO SCH (09:06)
[2021-11-13] MEDS: CLOPIDOGREL BISULFATE 75 MG TAB PO SCH (09:06)
[2021-11-13] MEDS: DEXAMETHASONE SOD PHOS INJ 4 MG/ML SDV IV SCH ×2 (11:53→22:23)
[2021-11-13] MEDS ORDERED: REMDESIVIR 100MG 200 MG in SODIUM CHLORIDE 0.9% 100 ML IV ONE (12:00)
[2021-11-13] MEDS: CEFTRIAXONE 1 GM in SODIUM CHLORIDE 0.9% 50ML 50 ML IV SCH (17:31)
[2021-11-13] MEDS ORDERED: Vancomycin IV 1 GM in SODIUM CHLORIDE 0.9% 250ML 250 ML IV ONE (22:00)
[2021-11-14] VITALS (8 sets, daily range): BP systolic 106–113; BP diastolic 49–70
[2021-11-14] MEDS: ACETAMIN/BUTALBITAL/CAFFEINE TAB PO PRN ×2 (00:19→20:58)
[2021-11-14 05:05] LABS: HEMATOCRIT 31.8 % (34.2-44.1); HEMOGLOBIN 9.6 g/dL (12.0-16.0); RED BLOOD COUNT 3.09 x10e6/uL (3.6-5.1)
[2021-11-14 05:06] LABS: LYMPHOCYTES # (AUTO) 0.8 (1.0-3.2); LYMPHOCYTES % 21.4 % (18.0-39.1); MEAN CORPUSCULAR HEMOGLOBIN 31.1 pg (28-32); MEAN CORPUSCULAR HGB CONC 30.2 g/dL (31-35); MEAN CORPUSCULAR VOLUME 102.9 fL (81-99); MONOCYTES # (AUTO) 0.3 (0.2-0.8); MONOCYTES % 8.2 % (4.4-11.3); NEUTROPHILS # (AUTO) 2.6 (2.1-6.9); NEUTROPHILS % 70.1 % (38.7-80.0); PLATELET COUNT 170 x10e3/uL (140-360); RED CELL DISTRIBUTION WIDTH 14.2 % (11.7-14.4)
[2021-11-14 05:53] LABS: ALBUMIN 2.8 g/dL (3.5-5.0); ANION GAP 10.5 mmol/L (8-16); CALCIUM 7.4 mg/dL (8.4-10.2); CREATININE, SERUM 0.96 mg/dL (0.57-1.11); POTASSIUM 4.5 mmol/L (3.5-5.1)
[2021-11-14] MEDS: SODIUM CHLORIDE 0.9% 1000ML 1,000 ML IV SCH ×3 (06:03→20:54)
[2021-11-14] MEDS: PANTOPRAZOLE SOD 40 MG TABEC PO SCH (07:49)
[2021-11-14] MEDS: LORATADINE 10 MG TAB PO SCH (09:38)
[2021-11-14] MEDS: ZINC SULFATE 220 MG CAP PO SCH (09:38)
[2021-11-14] MEDS: SIMVASTATIN 40 MG TAB PO SCH (09:38)
[2021-11-14] MEDS: TRAMADOL/APAP 37.5MG-325MG TAB PO SCH ×2 (09:38→17:50)
[2021-11-14] MEDS: ASCORBIC ACID 500 MG TAB PO SCH ×2 (09:38→16:53)
[2021-11-14] MEDS: DEXAMETHASONE SOD PHOS INJ 4 MG/ML SDV IV SCH (09:38)
[2021-11-14] MEDS: BENZONATATE 100 MG CAP PO SCH ×3 (09:38→20:54)
[2021-11-14] MEDS: OXYBUTYNIN CHLORIDE 5 MG TAB PO SCH ×2 (09:38→16:53)
[2021-11-14] MEDS: CLOPIDOGREL BISULFATE 75 MG TAB PO SCH (09:38)
[2021-11-14] MEDS: CHOLECALCIFEROL 1,000 UNIT TAB PO SCH (09:38)
[2021-11-14] MEDS: ALPRAZOLAM 1 MG TAB PO SCH ×2 (09:38→20:54)
[2021-11-14] MEDS: AMLODIPINE BESYLATE 5 MG TAB PO SCH (09:38)
[2021-11-14] MEDS: NON-FORMULARY MEDICATION (Nabumetone 500 MG) PO SCH (12:14)
[2021-11-14] MEDS ORDERED: DEXAMETHASONE 4 MG TAB PO SCH (12:15)
[2021-11-14] MEDS ORDERED: DEXAMETHASONE 4 MG TAB PO NR (13:30)
[2021-11-14] MEDS: REMDESIVIR 100MG 100 MG in SODIUM CHLORIDE 0.9% 100 ML IV SCH (14:21)
[2021-11-14] MEDS: CEFTRIAXONE 1 GM in SODIUM CHLORIDE 0.9% 50ML 50 ML IV SCH (16:53)
[2021-11-14] MEDS: Vancomycin IV 1 GM in SODIUM CHLORIDE 0.9% 250ML 250 ML IV SCH (17:50)
[2021-11-15] VITALS (9 sets, daily range): BP systolic 94–138; BP diastolic 51–85
[2021-11-15] MEDS: SODIUM CHLORIDE 0.9% 1000ML 1,000 ML IV SCH ×3 (02:47→20:39)
[2021-11-15] MEDS: Vancomycin IV 1 GM in SODIUM CHLORIDE 0.9% 250ML 250 ML IV SCH ×2 (06:16→18:45)
[2021-11-15] MEDS: ACETAMIN/BUTALBITAL/CAFFEINE TAB PO PRN ×2 (06:42→20:39)
[2021-11-15] MEDS: PANTOPRAZOLE SOD 40 MG TABEC PO SCH (08:47)
[2021-11-15] MEDS: DEXAMETHASONE 4 MG TAB PO SCH (08:48)
[2021-11-15] MEDS: LORATADINE 10 MG TAB PO SCH (08:48)
[2021-11-15] MEDS: ZINC SULFATE 220 MG CAP PO SCH (08:49)
[2021-11-15] MEDS: CLOPIDOGREL BISULFATE 75 MG TAB PO SCH (08:49)
[2021-11-15] MEDS: ASCORBIC ACID 500 MG TAB PO SCH ×2 (08:49→16:07)
[2021-11-15] MEDS: OXYBUTYNIN CHLORIDE 5 MG TAB PO SCH ×2 (08:49→16:07)
[2021-11-15] MEDS: CHOLECALCIFEROL 1,000 UNIT TAB PO SCH (08:49)
[2021-11-15] MEDS: SIMVASTATIN 40 MG TAB PO SCH (08:50)
[2021-11-15] MEDS: NON-FORMULARY MEDICATION (Nabumetone 500 MG) PO SCH (09:00)
[2021-11-15] MEDS: ALPRAZOLAM 1 MG TAB PO SCH ×2 (10:00→20:39)
[2021-11-15] MEDS: TRAMADOL/APAP 37.5MG-325MG TAB PO SCH ×2 (10:00→16:07)
[2021-11-15] MEDS: BENZONATATE 100 MG CAP PO SCH ×3 (10:00→20:39)
[2021-11-15] MEDS ORDERED: REMDESIVIR 100MG 100 MG in SODIUM CHLORIDE 0.9% 100 ML IV SCH (14:45)
[2021-11-15] MEDS: REMDESIVIR 100MG 100 MG in SODIUM CHLORIDE 0.9% 100 ML IV SCH (14:54)
[2021-11-15] MEDS ORDERED: REMDESIVIR 100MG 200 MG in SODIUM CHLORIDE 0.9% 100 ML IV ONE (15:00)
[2021-11-15] MEDS: AMLODIPINE BESYLATE 5 MG TAB PO SCH (16:06)
[2021-11-15] MEDS: CEFTRIAXONE 1 GM in SODIUM CHLORIDE 0.9% 50ML 50 ML IV SCH (17:39)
[2021-11-16] VITALS (9 sets, daily range): BP systolic 109–148; BP diastolic 52–69
[2021-11-16] MEDS: SODIUM CHLORIDE 0.9% 1000ML 1,000 ML IV SCH ×3 (04:03→19:00)
[2021-11-16] MEDS: Vancomycin IV 1 GM in SODIUM CHLORIDE 0.9% 250ML 250 ML IV SCH ×2 (05:30→17:02)
[2021-11-16] MEDS: NON-FORMULARY MEDICATION (Nabumetone 500 MG) PO SCH (09:00)
[2021-11-16] MEDS: OXYBUTYNIN CHLORIDE 5 MG TAB PO SCH ×2 (10:24→17:01)
[2021-11-16] MEDS: DEXAMETHASONE 4 MG TAB PO SCH (10:24)
[2021-11-16] MEDS: LORATADINE 10 MG TAB PO SCH (10:24)
[2021-11-16] MEDS: PANTOPRAZOLE SOD 40 MG TABEC PO SCH (10:24)
[2021-11-16] MEDS: CHOLECALCIFEROL 1,000 UNIT TAB PO SCH (10:25)
[2021-11-16] MEDS: SIMVASTATIN 40 MG TAB PO SCH (10:25)
[2021-11-16] MEDS: BENZONATATE 100 MG CAP PO SCH ×3 (10:25→21:09)
[2021-11-16] MEDS: AMLODIPINE BESYLATE 5 MG TAB PO SCH (10:25)
[2021-11-16] MEDS: ASCORBIC ACID 500 MG TAB PO SCH ×2 (10:25→17:02)
[2021-11-16] MEDS: CLOPIDOGREL BISULFATE 75 MG TAB PO SCH (10:25)
[2021-11-16] MEDS: TRAMADOL/APAP 37.5MG-325MG TAB PO SCH ×2 (10:25→17:02)
[2021-11-16] MEDS: ALPRAZOLAM 1 MG TAB PO SCH ×2 (10:25→21:09)
[2021-11-16] MEDS: ZINC SULFATE 220 MG CAP PO SCH (10:25)
[2021-11-16 10:47] LABS: BASOPHILS % 0.2 % (0.0-1.0); EOSINOPHILS % 0.2 % (0.0-6.0); HEMATOCRIT 31.2 % (34.2-44.1); HEMOGLOBIN 9.2 g/dL (12.0-16.0); LYMPHOCYTES # (AUTO) 1.5 (1.0-3.2); LYMPHOCYTES % 30.8 % (18.0-39.1); MEAN CORPUSCULAR HEMOGLOBIN 30.9 pg (28-32); MEAN CORPUSCULAR HGB CONC 29.5 g/dL (31-35); MEAN CORPUSCULAR VOLUME 104.7 fL (81-99); MONOCYTES # (AUTO) 0.3 (0.2-0.8); MONOCYTES % 5.9 % (4.4-11.3); NEUTROPHILS % 62.1 % (38.7-80.0); PLATELET COUNT 136 x10e3/uL (140-360); RED BLOOD COUNT 2.98 x10e6/uL (3.6-5.1); RED CELL DISTRIBUTION WIDTH 14.3 % (11.7-14.4)
[2021-11-16 11:10] LABS: ANION GAP 8.3 mmol/L (8-16); CALCIUM 7.1 mg/dL (8.4-10.2); CREATININE, SERUM 0.64 mg/dL (0.57-1.11); POTASSIUM 3.3 mmol/L (3.5-5.1)
[2021-11-16] MEDS: REMDESIVIR 100MG 100 MG in SODIUM CHLORIDE 0.9% 100 ML IV SCH (15:16)
[2021-11-16] MEDS: LACTOBACILLUS ACIDOPHILUS CAPSULE PO SCH ×2 (15:16→21:09)
[2021-11-16] MEDS: CEFTRIAXONE 1 GM in SODIUM CHLORIDE 0.9% 50ML 50 ML IV SCH (17:02)
[2021-11-17 01:54] VITALS: BP 122/66
[2021-11-17] MEDS: SODIUM CHLORIDE 0.9% 1000ML 1,000 ML IV SCH ×2 (04:56→13:28)
[2021-11-17] MEDS: Vancomycin IV 1 GM in SODIUM CHLORIDE 0.9% 250ML 250 ML IV SCH (05:40)
[2021-11-17 05:43] VITALS: BP 126/62
[2021-11-17] MEDS: NON-FORMULARY MEDICATION (Nabumetone 500 MG) PO SCH (09:00)
[2021-11-17] MEDS: OXYBUTYNIN CHLORIDE 5 MG TAB PO SCH ×2 (09:36→17:46)
[2021-11-17] MEDS: CHOLECALCIFEROL 1,000 UNIT TAB PO SCH (09:36)
[2021-11-17] MEDS: TRAMADOL/APAP 37.5MG-325MG TAB PO SCH ×2 (09:36→17:46)
[2021-11-17] MEDS: SIMVASTATIN 40 MG TAB PO SCH (09:36)
[2021-11-17] MEDS: LACTOBACILLUS ACIDOPHILUS CAPSULE PO SCH ×2 (09:36→15:53)
[2021-11-17] MEDS: ZINC SULFATE 220 MG CAP PO SCH (09:36)
[2021-11-17] MEDS: BENZONATATE 100 MG CAP PO SCH ×2 (09:36→15:53)
[2021-11-17] MEDS: AMLODIPINE BESYLATE 5 MG TAB PO SCH (09:36)
[2021-11-17] MEDS: DEXAMETHASONE 4 MG TAB PO SCH (09:36)
[2021-11-17] MEDS: ASCORBIC ACID 500 MG TAB PO SCH ×2 (09:36→17:46)
[2021-11-17] MEDS: ALPRAZOLAM 1 MG TAB PO SCH (09:36)
[2021-11-17] MEDS: LORATADINE 10 MG TAB PO SCH (09:36)
[2021-11-17] MEDS: CLOPIDOGREL BISULFATE 75 MG TAB PO SCH (09:36)
[2021-11-17] MEDS: PANTOPRAZOLE SOD 40 MG TABEC PO SCH (09:36)
[2021-11-17 09:45] VITALS: BP 114/68
[2021-11-17 11:07] VITALS: BP 114/68
[2021-11-17] MEDS: REMDESIVIR 100MG 100 MG in SODIUM CHLORIDE 0.9% 100 ML IV SCH (13:28)
[2021-11-17 13:55] VITALS: BP 138/72
[2021-11-17] MEDS ORDERED: LORATADINE10 MG PO (14:01)
[2021-11-17] MEDS ORDERED: ZINC SULFATE50 MG PO (14:01)
[2021-11-17] MEDS ORDERED: Benzonatate PO (14:01)
[2021-11-17 15:52] VITALS: BP 140/72
[2021-11-17] MEDS: CEFTRIAXONE 1 GM in SODIUM CHLORIDE 0.9% 50ML 50 ML IV SCH (17:46)
== END 2021-11-17 18:47 | DRG 177 ==
LOC: ER 17:15 → ERHOLD 19:16 → IMCU 20:44
PROVIDERS: ADMIT Internal Medicine; ATTEND Internal Medicine
PROC: 8E0ZXY6 Isolation (ICD-10-PCS; 2021-11-12)
PROC: XW043E5 Introduction of Remdesivir Anti-infective into Central Vein, Percutaneous Approach, New Technology Group 5 (ICD-10-PCS; 2021-11-14)
PROC: 02HV33Z Insertion of Infusion Device into Superior Vena Cava, Percutaneous Approach (ICD-10-PCS; principal; 2021-11-15)
DX: U07.1 COVID-19 (principal); J12.82 Pneumonia due to coronavirus disease 2019; J96.01 Acute respiratory failure with hypoxia; N39.0 Urinary tract infection, site not specified; Z16.22 Resistance to vancomycin related antibiotics; N17.9 Acute kidney failure, unspecified; I13.0 Hypertensive heart and chronic kidney disease with heart failure and stage 1 through stage 4 chronic kidney disease, or unspecified chronic kidney disease; E66.9 Obesity, unspecified; Z68.39 Body mass index [BMI] 39.0-39.9, adult; B96.20 Unspecified Escherichia coli [E. coli] as the cause of diseases classified elsewhere; N18.30 Chronic kidney disease, stage 3 unspecified; B95.2 Enterococcus as the cause of diseases classified elsewhere; J44.9 Chronic obstructive pulmonary disease, unspecified; R26.9 Unspecified abnormalities of gait and mobility; F41.9 Anxiety disorder, unspecified; Z86.73 Personal history of transient ischemic attack (TIA), and cerebral infarction without residual deficits; E11.22 Type 2 diabetes mellitus with diabetic chronic kidney disease; I50.9 Heart failure, unspecified
CPT/HCPCS: 36415; 36569; 71045; 80048; 80053; 80202; 81001; 82550; 82553; 83605; 83735; 83880; 84132; 84484; 85025; 85610; 85730; 87040; 87071; 87086; 87186; 87205; 93005; 94799; 96361; 97139; 99251; 99284; J0248; J0456; J0696; J1100; J3370; J7030; J7050; U0002